=== PATIENT | female | born 1955 | race Caucasian/White ===

== ENCOUNTER → 2019-09-09 | Outpatient (CLI) | payer OTHER ==
--- NOTE | 2019-09-11 08:29 | MAM ---
EXAM DESCRIPTION: 3D Screening BILATERAL : Digital Mammography. CLINICAL HISTORY: 64 years Female ANNUAL SCREENING no complaints. No personal or family history of breast cancer. Menarche age 14. Childbirth age 21. Menopause age 54. No HRT. Lifetime risk of developing breast cancer (Tyrer-Cuzick model)(%): 5.0. COMPARISON: Baseline study at this facility.. No prior reports available. TECHNIQUE: Bilateral CC and MLO projection full-field images, digital tomosynthesis mammographic technique. Bilateral digital 2-D full-field MLO images. CAD available for 2-D images. FINDINGS: The breast parenchymal density pattern is: Almost entirely fatty. No skin thickening or nipple retraction. Region of focal asymmetry 10:30 anterior third right breast 6.5 cm from the nipple. Small mass density anterior left breast 3 cm from the nipple at the 10:30 position. Bilateral solitary microcalcifications and skin calcifications. No suspicious microcalcifications bilaterally. IMPRESSION: BI-RADS CATEGORY: 0 - INCOMPLETE- Need additional imaging evaluation. RECOMMENDATIONS: FOLLOW-UP: Recall for additional imaging: Bilateral directed breast ultrasound regions of interest.. Written communication concerning the IMPRESSION and Follow-up, will be mailed to the patient and referring health care provider. Electronically signed by: Philip Beard MD 09/11/2019 8:28 AM CDT
== END ==
LOC: MAMMO 11:33
PROVIDERS: ATTEND Family Medicine
DX: Z12.31 Encounter for screening mammogram for malignant neoplasm of breast (principal); R92.8 Other abnormal and inconclusive findings on diagnostic imaging of breast

== ENCOUNTER → 2019-10-05 | Outpatient (CLI) | payer OTHER ==
--- NOTE | 2019-10-06 11:38 | US ---
EXAM DESCRIPTION: Breast,Bilateral: Ultrasound. CLINICAL HISTORY: 64 yearsFemaleABNORMAL MAMMOGRAM. Focal asymmetry upper outer quadrant anterior third right breast. Mass density anterior third left breast. COMPARISON: Bilateral screening digital breast tomosynthesis September 08. TECHNIQUE: Transcutaneous scanning of the bilateral breasts utilizing coleman-scale and Doppler modes. Scanning performed by the solids control technician ; observation by Dr. Beard. FINDINGS: Scanning right breast upper outer quadrant. Mostly fatty echotexture with minimal fibroglandular tissues upper outer quadrant right breast 6 cm from the nipple at 10:30. No dominant solid mass or distinct cyst. No fluid collection or large calcifications. No overlying skin changes. Scanning upper-outer quadrant area retroareolar left breast. Mostly fatty echotexture. No dominant solid mass or distinct cyst. No fluid collection or large calcifications. No overlying skin changes. IMPRESSION: Benign exam. BIRAD CATEGORY: 2 BENIGN FINDINGS. RECOMMENDATIONS: FOLLOW UP: Return to routine digital bilateral mammographic screening, one year interval from August 2019. Written communication explaining the IMPRESSION and follow-up, will be mailed to the patient and referring health care provider. The FINDINGS and the FOLLOW-UP plan were reviewed in person with the patient after the examination. According to the [employer], yearly mammograms are recommended starting at age 40 and continuing as long as a woman is in good health. Any breast change noted on a breast self-exam should be reported promptly to the patient's healthcare provider. Breast MRI is recommended for women with an approximately 20-25% or greater lifetime risk of breast cancer, including women with a strong family history of breast or ovarian cancer and women who have been treated for Hodgkin's disease. A negative mammographic report should not delay tissue diagnosis in patients with significant clinical history or physical findings. Extremely dense breast tissue limits the sensitivity of digital mammography. Electronically signed by: Philip Beard MD 10/06/2019 11:36 AM CDT
== END ==
LOC: MAMMO 11:08
PROVIDERS: ATTEND Family Medicine
DX: R92.8 Other abnormal and inconclusive findings on diagnostic imaging of breast (principal)
CPT/HCPCS: 76641; 77066; G0279